=== PATIENT | male | born 1955 | race Hispanic/Latino ===

== ENCOUNTER 2020-04-27 09:41 | Outpatient (CLI) | payer MEDICARE, OTHER ==
[2020-04-27] MEDS ORDERED: Iopamidol 370 76% 100 ML VIAL ONE (10:38)
--- NOTE | 2020-04-27 12:47 | CT ---
CT ABDOMEN AND PELVIS WITH IV CONTRAST 04/27/2020 CLINICAL INFORMATION: Right upper quadrant abdominal pain for a few weeks. History of prior cholecystectomy. Right upper qu adrant swelling COMPARISON: None. Technique: Multiple contiguous axial CT images are obtained through the abdomen and pelvis with IV contrast. Cor onal reformatted images are provided. FINDINGS: Lower Chest: Trace right pleural effusion with atelectasis is present. Left lung base is clear. Vessels: Minimal vascular calcifications are seen in the infrarenal abdominal aorta. Normal aorta is normal in caliber Abdomen: Portal vein:Patent Gallbladder: Surgically absent. There is a small 2.3 cm hypodense cystic appearing collection seen wi thin the gallbladder fossa with may be related to postoperative change. No adjacent inflammatory changes are identified. Liver: within normal limits. Spleen: within normal limits. Pancreas: within normal limits. Adrenals: within normal limits. Kidneys: Right renal cysts are again seen. Kidneys otherwise have a normal CT appearance. Bowel: There is colonic diverticulosis. There is suggestion of thickening in the region of the cecal apex, this is likely related to incomplete distention. There is a midline fluid collection just anterior to the rectum measuring 3 cm which may represent a prominent diverticulum as this is closely adjacent to the anterior wall of the rectum. Loops of small bowel are normal in caliber. However, there is tethering of the second portion of the duodenum laterally with fistulous communication to the small collection at the posterolateral aspect of the right upper quadrant which extends along the right posterolateral margin of the liver. This collection does have gas and tiny amount of fluid as well as gas present. Ludwig of this collection are significantly thickened. Findings may be related to perforation of duodenal ulcer with contained perforation and now persistent fistulous communication between small bowel and small collection. The duodenum in this region does appear mildly thickened. Measurements of the collection are difficult to obtain due to curvilinear appearance around the margin of the liver. This collection measures 6.7 cm craniocaudal x1.3 cm transverse x4.9 cm AP. There is a small tubular area of diminished attenuation extending from the level of the ascending colon superiorly to the level of the inferior aspect of the collection adjacent to the liver. No contrast is seen in this tubular s tructure. Mesentery and Retroperitoneum: No enlarged mesenteric or retroperitoneal lymph nodes. Abdominal Wall: within normal limits. Pelvis: Reproductive Organs: Prostate gland is enlarged in transverse dimensions measuring 6.2 cm. Bladder: within normal limits. Bones: No suspicious lytic or sclerotic osseous lesions. IMPRESSION: 1. Small curvilinear fluid and gas collection adjacent to the posterolateral margin of the right hepa tic lobe with contrast present in the collection. 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 Findings could be related to prior perforated ulcer with fistulous communica tion with persistent contained perforation. Erosion of bowel wall secondary to drainage catheter right upper quadrant is a potential possibility patient has had prior drainage catheter in this regio n. There is also a small low-attenuation area extending from the ascending colon to the inferior aspect of the curvilinear collection adjacent to the liver. No free intraperitoneal gas is seen in th e abdomen, and no additional fluid and gas collection is seen. 2. Cholecystectomy with small residual fluid collection gallbladder fossa measuring 2.3 cm. 3. Above findings discussed with Dr. Haq on 04/27/2020 at 1232 hours.
== END 2020-04-27 09:42 | disposition home or self-care (01) ==
LOC: CT 09:41
PROVIDERS: ATTEND Internal Medicine Hematology & Oncology
DX: R19.01 Right upper quadrant abdominal swelling, mass and lump (principal); Z90.49 Acquired absence of other specified parts of digestive tract
CPT/HCPCS: 74177; 82565; Q9967

== ENCOUNTER 2020-06-06 11:52 | Outpatient (CLI) | payer MEDICARE ==
--- NOTE | 2020-06-06 12:39 | RAD ---
EXAM: Chest 2 views: HISTORY: Chronic cough COMPARISON: None. FINDINGS: There is a normal-sized cardiomediastinal silhouette. There is no evidence of consolidation, mass, or pleural effusion. No acute osseous abnormality. IMPRESSION: No evidence of acute cardiopulmonary disease
== END 2020-06-06 11:53 | disposition home or self-care (01) ==
LOC: BICRAD 11:52
PROVIDERS: ATTEND Internal Medicine Gastroenterology
DX: R05 Cough (principal); K21.9 Gastro-esophageal reflux disease without esophagitis; R63.4 Abnormal weight loss; R93.89 Abnormal findings on diagnostic imaging of other specified body structures
CPT/HCPCS: 71046

== ENCOUNTER 2020-06-22 08:27 | Outpatient (CLI) | payer MEDICARE ==
[2020-06-22 20:02] LABS: SARS-CoV-2 PCR by NAA Not Detected (NotDetected)
== END 2020-06-22 08:28 | disposition home or self-care (01) ==
LOC: LABBT 08:27
PROVIDERS: ATTEND Internal Medicine Gastroenterology
DX: Z20.822 Contact with and (suspected) exposure to COVID-19 (principal)
CPT/HCPCS: U0003; U0005; 87635

== ENCOUNTER 2020-06-26 06:06 | Day surgery (SDC) | payer MEDICARE ==
[2020-06-25 10:22] VITALS: BMI 26.9
[2020-06-26] MEDS ORDERED: Lidocaine 1% PF 5 ML VIAL ONE (08:35)
[2020-06-26] MEDS ORDERED: PROPOFOL 200 MG/20 ML VIAL ONE (08:35)
== END 2020-06-26 09:33 | disposition home or self-care (01) ==
LOC: SDC 06:06
PROVIDERS: ATTEND Internal Medicine Gastroenterology
PROC: 0DB48ZX Excision of Esophagogastric Junction, Via Natural or Artificial Opening Endoscopic, Diagnostic (ICD-10-PCS; principal; 2020-06-26)
DX: K22.70 Barrett's esophagus without dysplasia (principal); K21.00 Gastro-esophageal reflux disease with esophagitis, without bleeding; K57.10 Diverticulosis of small intestine without perforation or abscess without bleeding; K31.89 Other diseases of stomach and duodenum; K44.9 Diaphragmatic hernia without obstruction or gangrene; R93.3 Abnormal findings on diagnostic imaging of other parts of digestive tract; R05 Cough; R63.4 Abnormal weight loss; Z68.25 Body mass index [BMI] 25.0-25.9, adult; Z87.891 Personal history of nicotine dependence; Z79.899 Other long term (current) drug therapy
CPT/HCPCS: 88305; 88313; J2704

== ENCOUNTER 2020-07-27 07:54 | Outpatient (CLI) | payer OTHER, MEDICARE ==
[2020-07-27] MEDS ORDERED: Iopamidol 370 76% 100 ML VIAL ONE (09:33)
== END 2020-07-27 07:55 | disposition home or self-care (01) ==
LOC: BICCT 07:54
PROVIDERS: ATTEND Surgery
DX: K63.1 Perforation of intestine (nontraumatic) (principal); K62.9 Disease of anus and rectum, unspecified
CPT/HCPCS: 74177; 82565; Q9967